=== PATIENT | female | born 1995 | race Caucasian/White ===

== ENCOUNTER 2016-05-04 20:20 | Emergency (ER) ==
[2016-05-04 20:28] VITALS: BP 123/83; TEMP 98.3; BMI 34.2
[2016-05-04 20:46] LABS: URINE PREGNANCY INTERNAL QC INTERNAL QC VALID
[2016-05-04 20:59] LABS: COCAIN SCREEN,URINE NEGATIVE (NEGATIVE)
--- NOTE | 2016-05-04 21:11 | CT ---
EXAM: CT of the head without contrast. HISTORY: Earache. COMPARISON: None available. TECHNIQUE: Noncontrast CT of the head. FINDINGS: No intracranial hemorrhage or mass effect is identified. There is mild prominence of the sulci. The ventricles are normal in size and configuration. No brown white matter differentiation loss is seen to suggest an acute infarct. The calvarium is intact. The visualized paranasal sinuses are unopacified. The bilateral mastoid air cells are well-aerated. No significant middle ear opacification is seen on coronal images. No rey ss external auditory canal wall thickening is seen. IMPRESSION: No evidence of an acute intracranial process. The bilateral mastoid air cells and middle ears appear well-aerated.
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
[2016-05-04] MEDS ORDERED: TYLENOL PO STA (21:18)
--- NOTE | 2016-05-04 21:21 | ED.PDOC ---
General ED Provider: Dr. MELODIE ORLANDO-ER Chief Complaint: Fall Stated Complaint: i slipped at work on a package and hit my head on the floor-- employer requests drug screen Time Seen by Physician: 20:25 Information Source: Patient Exam Limitations: No limitations [facility] Nursing and Triage Documentation Reviewed and Agree: Yes Trauma/Injury Complaint Exam - Head Injury Complaint/Exam Location of Pain: Reports: Scalp Mechanism of Injury: Reports: Trauma Onset/Duration: secs Symptoms Are: Still present Initial Severity: Mild Current Severity: Mild Character: Reports: Dull, Throbbing Aggravating: Reports: None Alleviating: Reports: None Associated Signs and Symptoms: Denies: Confusion, Memory loss, Seizure, Epistaxis, Dental malocclusion, Neck pain, Nausea, Vomiting Loss of Consciousness: Seconds SDH Risk Factors: Present: None Related Surgical History: Reports: None Immobilization Removed Post Exam: No Head Injury Findings: Present: Normal findings Glascow Coma Scale (see protocol): 15 Focal Weakness: Present: None Focal Sensory Loss: Present: None Gait: Normal Gag Reflex Present: Yes Finger to Nose: Normal Rhomberg Test Positive: No Babinski Sign: Negative Right, Negative Left Heel to Toe Normal: Yes Nexus Low Risk Criteria: No post-midline CS tender Differential Diagnoses: Sprain, Strain, Trauma Review of Systems - Review Of Systems Constitutional: Reports: No symptoms Eyes: Reports: No symptoms Ears, Nose, Mouth, Throat: Reports: No symptoms Respiratory: Reports: No symptoms Cardiac: Reports: No symptoms GI: Reports: No symptoms : Reports: No symptoms Musculoskeletal: Reports: No symptoms Skin: Reports: No symptoms Neurological: Reports: Headache Endocrine: Reports: No symptoms Hematologic/Lymphatic: Reports: No symptoms All Other Systems: Reviewed and Negative Past Medical History - Past Medical History Previously Healthy: Yes Endocrine: Reports: None Cardiovascular: Reports: None Respiratory: Reports: None, Other Hematological: Reports: None Gastrointestinal: Reports: None Genitourinary: Reports: None Neuro/Psych: Reports: None Musculoskeletal: Reports: None Cancer: Reports: None Last Menstrual Period: UNSURE Other Pertinent Past Medical History: TORN LIGAMENTS TO RIGHT SHOULDER - Surgical History General Surgical History: Reports: Tonsillectomy - Family History Family History: Reports: Unknown - Social History Smoking Status: Current every day smoker, Light tobacco smoker Hx Substance Use: No Alcohol Screening: Occasionally Lives: With family - Immunizations Tetanus Shot up to Date: Yes Physical Exam - Physical Exam Appearance: Well-appearing Pain Distress: Mild Eyes: JOSE A, EOMI, Conjunctiva clear ENT: Ears normal, Nose normal, Oropharynx normal Neck: Supple Respiratory: Airway patent Cardiovascular: RRR GI/: Soft, Nontender, No masses, Bowel sounds normal, No Organomegaly Musculoskeletal: Normal strength, ROM intact, No edema, No calf tenderness Skin: Warm, Dry, Normal color Neurological: Sensation intact, Motor intact, Reflexes intact, Cranial nerves intact, Alert, Oriented Psychiatric: Affect appropriate, Mood appropriate Interpretation - Radiology Interpretation Radiology Interpretation By: Radiologist Radiology Results: Negative Exam Interpreted: CT Scan Re-Evaluation - Re-Evaluation Time of Re-Evaluation: 21:21 Status: Improved Vital Signs Stable: Yes Pain Level: 1 Appearance: NAD Lungs: Clear Skin: Warm and Dry Neuro: Alert and Oriented X3 CV: RRR Critical Care Note - Critical Care Note Total Time (mins): 0 Course - Course Orders, Labs, Meds: Lab Review 05/04/16 20:36 Urine Test Negative Urine Opiates Screen Negative Ur Oxycodone Screen Negative Urine Methadone Screen Negative Ur Propoxyphene Screen Negative Ur Barbiturates Screen Negative U Tricyclic Antidepress Negative Ur Phencyclidine Scrn Negative Ur Amphetamine Screen Negative U Methamphetamines Scrn Negative U Benzodiazepines Scrn Negative Urine Cocaine Screen Negative U Cannabinoids Screen Negative Orders Category Date Time Status URINE DRUG SCREEN (RAPID FOR ED) [DRUG SCREEN, URINE, LAB 05/04/16 20:36 Completed RAPID] Stat URINE Stat LAB 05/04/16 20:36 Completed Acetaminophen [Tylenol] MEDS 05/04/16 21:18 Stat 650 mg PO ONCE STA CT CERVICAL SPINE W/O CONTRAST Stat RADS 05/04/16 20:[address] HEAD W/O CONTRAST Stat RADS 05/04/16 20:31 Completed Medications Generic Name Dose Route Start Last Admin Trade Name Freq PRN Reason Stop Dose Admin Acetaminophen 650 mg 05/04/16 21:18 Tylenol PO 05/04/16 21:19 ONCE STA Vital Signs: Temp Pulse Resp BP Pulse Ox 05/04/16 20:22 98.3 F 87 16 123/83 98 Departure - Departure Time of Disposition: 21:21 Disposition: HOME SELF-CARE Discharge Problem: Closed head injury Qualifiers: Encounter type: initial encounter Qualifier Code: (S09.90XA) Unspecified injury of head, initial encounter Instructions: Head Injury (ED) Condition: Good Pt referred to PMD for follow-up: Yes Additional Instructions: tylenol or motrin for pain--f/u with pcp Allergies/Adverse Reactions: Allergies latex Adverse Reaction (Verified 05/04/16 20:21) Home Medications: Ambulatory Orders 1 [No Reported Medications] 05/04/16 Disposition Discussed With: Patient
== END 2016-05-04 21:47 | disposition home or self-care (01) ==
LOC: ED 20:20
DX: S09.90XA Unspecified injury of head, initial encounter (principal); R51 Headache; W01.198A Fall on same level from slipping, tripping and stumbling with subsequent striking against other object, initial encounter; Y99.0 Civilian activity done for income or pay; F17.210 Nicotine dependence, cigarettes, uncomplicated
CPT/HCPCS: 80306; 81025; 99283

== ENCOUNTER 2016-05-16 06:36 | Emergency (ER) ==
[2016-05-16 06:51] VITALS: BP 119/85; TEMP 97.6; BMI 33.9
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
--- NOTE | 2016-05-16 07:57 | DI ---
EXAM: RIGHT ANKLE THREE VIEWS HISTORY: Injury, pain . FINDINGS: Bone and joint structures appear normal. No fracture or joint dislocation. There is no joint effusion. Bone density is unremarkable. IMPRESSION: Bone and joint structures are within normal limits.
== END 2016-05-16 08:09 | disposition home or self-care (01) ==
LOC: ED 06:36
DX: S40.011A Contusion of right shoulder, initial encounter (principal); W10.9XXA Fall (on) (from) unspecified stairs and steps, initial encounter; F17.210 Nicotine dependence, cigarettes, uncomplicated
CPT/HCPCS: 99283

== ENCOUNTER 2016-10-07 09:32 | Emergency (ER) ==
[2016-10-07 09:36] VITALS: BP 117/78; TEMP 100.9; BMI 35.2
[2016-10-07] MEDS ORDERED: DECADRON 4 MG/ML SDV IM STA (09:45)
[2016-10-07] MEDS ORDERED: TORADOL IM STA (09:45)
--- NOTE | 2016-10-07 09:47 | ED.PDOC ---
General ED Provider: Dr. REECE LYNN Chief Complaint: Headache Stated Complaint: hurting for 3days, also coughing, congested, sinus drainage Time Seen by Physician: 09:45 Mode of Arrival: Walk-In Information Source: Patient Primary Care Provider: ANNE MARIE PATEL Nursing and Triage Documentation Reviewed and Agree: Yes Neurological Complaint Exam - Headache Complaint/Exam Onset: Gradual Symptoms Are: Still present Timing: Constant Worst Headache Ever: No Initial Severity: Moderate Current Severity: Moderate Location: Right, Left, Frontal Character: Reports: Dull Aggravating: Reports: Bright lights Alleviating: Reports: None Associated Signs and Symptoms: Reports: Nausea, Vomiting. Denies: Dizziness, Seizure, Sinus pressure, Fever, Neck pain, Neck stiffness, Decreased LOC, Visual changes Related History: Reports: Similar episode Related Surgical History: Reports: None SAH Risk Factors: Reports: None Meningitis Risk Factors: Reports: None SDH Risk Factors: Reports: None Temporal Arteritis Risk Factors: Reports: None Normal Head CT Within Last 12 Months: No Sinus Tenderness: Present: Maxillary, Frontal ROM Limited In: No Limitiations Focal Weakness: Present: None Focal Sensory Loss: Present: None Gait: Normal Nystagmus Present: No Gag Reflex Present: Yes [id number]: Normal Findings Differential Diagnoses: Migraine, Other (urti) Review of Systems - Review Of Systems Constitutional: Reports: Malaise Eyes: Reports: No symptoms Ears, Nose, Mouth, Throat: Reports: Nose discharge Respiratory: Reports: Cough Cardiac: Reports: No symptoms GI: Reports: No symptoms : Reports: No symptoms Musculoskeletal: Reports: No symptoms Skin: Reports: No symptoms Neurological: Reports: No symptoms Endocrine: Reports: No symptoms Hematologic/Lymphatic: Reports: No symptoms All Other Systems: Reviewed and Negative Past Medical History - Past Medical History Previously Healthy: Yes Endocrine: Reports: None Cardiovascular: Reports: None Respiratory: Reports: None, Other Hematological: Reports: None Gastrointestinal: Reports: None Genitourinary: Reports: None Neuro/Psych: Reports: Migraine Musculoskeletal: Reports: None, Other (subtle ac separation on joint films) Cancer: Reports: None Last Menstrual Period: 10/05/2016 Other Pertinent Past Medical History: TORN LIGAMENTS TO RIGHT SHOULDER-note chnages on MR without fullthick tear, - Surgical History General Surgical History: Reports: Tonsillectomy - Family History Family History: Reports: Unknown - Social History Smoking Status: Current every day smoker Smoking Cessation Counseling Time: > 3 min - 10 min Hx Substance Use: No Alcohol Screening: Occasionally - Immunizations Tetanus Shot up to Date: Yes Physical Exam - Physical Exam Appearance: Well-appearing, No pain distress, Well-nourished Eyes: JOSE A, EOMI, Conjunctiva clear ENT: Ears normal, Nose normal, Oropharynx normal Respiratory: Airway patent, Breath sounds clear, Breath sounds equal, Respirations nonlabored Cardiovascular: RRR, Pulses normal, No rub, No murmur GI/: Soft, Nontender, No masses, Bowel sounds normal, No Organomegaly Musculoskeletal: Normal strength, ROM intact, No edema, No calf tenderness Skin: Warm, Dry, Normal color Neurological: Sensation intact, Motor intact, Reflexes intact, Cranial nerves intact, Alert, Oriented Psychiatric: Affect appropriate, Mood appropriate Critical Care Note - Critical Care Note Total Time (mins): 0 Course - Course Orders, Labs, Meds: Orders Category Date Time Status Dexamethasone 4 mg/ml Inj [Decadron 4 mg/ml Sdv] MEDS 10/07/16 09:45 Stat 4 mg IM ONCE STA Ketorolac Tromethamine [Toradol] MEDS 10/07/16 09:45 Stat 30 mg IM ONCE STA Vital Signs: Temp Pulse Resp BP Pulse Ox 10/07/16 09:32 100.9 F H 125 H 20 117/78 95 Departure - Departure Time of Disposition: 09:47 Disposition: HOME SELF-CARE Discharge Problem: Acute upper respiratory infection Instructions: Upper Respiratory Infection (ED) Condition: Stable Pt referred to PMD for follow-up: Yes Additional Instructions: Tylenol prn Increase hydration f/u at [facility] Prescriptions: Amoxicillin/Potassium Clav [Augmentin 500-125 mg Tab] 1 tab PO Q12HR #20 tablet Prednisone 10 mg PO BIDWM #14 tablet Allergies/Adverse Reactions: Allergies latex Adverse Reaction (Verified 10/07/16 09:40) says latex nixon skin when she wears them, but does not break out if someone just touches her while wearing latex clothes. Home Medications: Ambulatory Orders Amoxicillin/Potassium Clav [Augmentin 500-125 mg Tab] 1 tab PO Q12HR #20 tablet 10/07/16 Prednisone 10 mg PO BIDWM #14 tablet 10/07/16 Disposition Discussed With: Patient
== END 2016-10-07 10:36 | disposition home or self-care (01) ==
LOC: ED 09:32
DX: J06.9 Acute upper respiratory infection, unspecified (principal); F17.210 Nicotine dependence, cigarettes, uncomplicated
CPT/HCPCS: 96372; 99282

== ENCOUNTER 2017-03-13 13:18 | Outpatient (CLI) ==
[2017-03-13 13:38] LABS: BILIRUBIN,URINE Negative (NEGATIVE); KETONES,URINE Negative (NEGATIVE); LEUKOCYTE ESTERASE ,URINE 1+ (NEGATIVE); NITRITE,URINE Negative (NEGATIVE); PH,URINE 5.5 (5-9); PROTEIN,URINE 1+ (NEGATIVE); URINE, BLOOD 1+ (NEGATIVE)
[2017-03-13 13:59] LABS: ADD URINE MICROSCOPIC YES
[2017-03-13 14:04] LABS: BACTERIA,URINE 2+ (NOT PRESENT)
[2017-03-13 14:24] LABS: ALBUMIN 3.4 g/dL (3.4-5.0); ANION GAP 12.2; BILIRUBIN,TOTAL 0.36 mg/dL (0.00-1.20); BUN/CREATININE RATIO 16.9; CALCIUM 9.4 mg/dL (8.2-10.2); CREATININE 0.71 mg/dL (0.60-1.30); POTASSIUM 4.2 mmol/L (3.5-5.10); TOTAL PROTEIN 6.8 g/dL (6.4-8.2)
[2017-03-14 08:30] LABS: RAPID PLASMA REAGIN Non Reactive (Non Reactive)
== END 2017-03-13 13:19 | disposition home or self-care (01) ==
LOC: LAB 13:18
PROVIDERS: ATTEND Nurse Practitioner Family
DX: Z20.2 Contact with and (suspected) exposure to infections with a predominantly sexual mode of transmission (principal)
CPT/HCPCS: 36415; 80053; 80074; 81001; 86592; 86631; 86695; 86696; 86701; 87086; 87800

== ENCOUNTER 2017-08-17 10:31 | Emergency (ER) | payer MEDICAID, OTHER ==
[2017-08-17 10:38] VITALS: BP 136/88; TEMP 97.9; BMI 41.5
--- NOTE | 2017-08-17 11:12 | ED.PDOC ---
General ED Provider: Dr. MELODIE ALVARENGA Chief Complaint: Nausea/Vomiting Stated Complaint: Was camping at [facility]; consumed sour milk. Feels nauseated and lt lower abdominal pain. 1 episoded loose stools Time Seen by Physician: 10:45 Mode of Arrival: Walk-In Information Source: Patient Exam Limitations: No limitations Primary Care Provider: REECE LINDA Referred to ED by: Other (self-woried she had a GI infection and wanted to get checked ou7) Nursing and Triage Documentation Reviewed and Agree: Yes Reviewed sepsis parameters & appropriate labs ordered?: Yes System Inflammatory Response Syndrome: Not Applicable Sepsis Protocol: For patient's 13 years and over: Temp is 96.8 and below OR 101 and greater Pulse >90 BPM Resp >20/minute Acutely Altered Mental Status Are patient's symptoms suggestive of a new infection, such as: -Pneumonia -Skin, Soft Tissue -Endocarditis -UTI -Bone, Joint Infection -Implantable Device -Acute Abdominal Infection -Wound Infection -Meningitis -Blood Stream Catheter Infection -Unknown System Inflammatory Response Syndrome: Not Applicable GI Complaint Exam - Vomiting/Diarrhea Complaint/Exam Onset/Duration: 1 day Symptoms Are: Still present (iimproved) Initial Severity: Moderate Current Severity: Mild Character of Vomiting: Reports: Bilious Character of Diarrhea: Reports: Watery Aggravating: Reports: Liquids Alleviating: Reports: None Associated Signs and Symptoms: Reports: Cramping. Denies: Dizziness, Light- headedness, Melena, Hematemesis, Fever, Abdominal pain Related History: Denies: Similar episode Non-GI Risk Factors: Reports: None Surgical Obstruction Risk Factors: Reports: None Related Surgical History: Reports: None Abdominal Findings: Present: CVA Tenderness (lt) Kussmaul Respirations Present: No Review of Systems - Review Of Systems Constitutional: Reports: No symptoms Eyes: Reports: No symptoms Ears, Nose, Mouth, Throat: Reports: No symptoms Respiratory: Reports: No symptoms Cardiac: Reports: No symptoms GI: Reports: Nausea, Poor appetite, Vomiting : Reports: No symptoms Musculoskeletal: Reports: No symptoms Skin: Reports: No symptoms Neurological: Reports: No symptoms Endocrine: Reports: No symptoms Hematologic/Lymphatic: Reports: No symptoms All Other Systems: Reviewed and Negative Past Medical History - Past Medical History Previously Healthy: Yes Endocrine: Reports: None Cardiovascular: Reports: None Respiratory: Reports: None, Other Hematological: Reports: None Gastrointestinal: Reports: None Genitourinary: Reports: None Neuro/Psych: Reports: Migraine Musculoskeletal: Reports: None, Other (subtle ac separation on joint films) Cancer: Reports: None Last Menstrual Period: last week Other Pertinent Past Medical History: TORN LIGAMENTS TO RIGHT SHOULDER-note chnages on MR without fullthick tear, - Surgical History General Surgical History: Reports: Tonsillectomy - Family History Family History: Reports: Unknown - Social History Smoking Status: Current every day smoker Hx Substance Use: No Alcohol Screening: Occasionally Physical Exam - Physical Exam Appearance: Well-appearing, No pain distress, Well-nourished Eyes: JOSE A, EOMI, Conjunctiva clear ENT: Ears normal, Nose normal, Oropharynx normal Respiratory: Airway patent, Breath sounds clear, Breath sounds equal, Respirations nonlabored Cardiovascular: RRR, Pulses normal, No rub, No murmur GI/: Soft, No masses, Bowel sounds normal, No Organomegaly, Tender (LUQ-LLQ with mild guarding) Musculoskeletal: Normal strength, ROM intact, No edema, No calf tenderness Skin: Warm, Dry, Normal color Neurological: Sensation intact, Motor intact, Reflexes intact, Cranial nerves intact, Alert, Oriented Psychiatric: Affect appropriate, Mood appropriate Critical Care Note - Critical Care Note Total Time (mins): 30 Course - Course Hematology/Chemistry: 08/17/17 11:43 08/17/17 11:43 Orders, Labs, Meds: Lab Review 08/17/17 08/17/17 08/17/17 11:17 11:43 11:43 WBC 8.90 RBC 4.46 Hgb 13.1 Hct 39.0 MCV 87.4 MCH 29.4 MCHC 33.6 RDW Coeff of Emiliano 13.7 Plt Count 269 Immature Gran % (Auto) 0.7 Neut % (Auto) 60.4 Lymph % (Auto) 29.4 Wagoner % (Auto) 7.6 Eos % (Auto) 1.2 Baso % (Auto) 0.7 Immature Gran # (Auto) 0.1 Neut # (Auto) 5.4 Lymph # (Auto) 2.6 Wagoner # (Auto) 0.7 Eos # (Auto) 0.1 Baso # (Auto) 0.1 Sodium 141 Potassium 4.2 Chloride 107 Carbon Dioxide 26 Anion Gap 12.2 BUN 11 Creatinine 0.73 Estimated GFR (MDRD) 100.00 BUN/Creatinine Ratio 15.06 Glucose 90 Calcium 9.9 Total Bilirubin 0.3 AST 18 ALT 22 Alkaline Phosphatase 50 Total Protein 6.7 Albumin 3.7 Globulin 3.0 Albumin/Globulin Ratio 1.23 Urine Color Yellow Urine Clarity Clear Urine pH 6.5 Ur Specific Bland 1.015 Urine Protein Negative Urine Glucose (UA) Negative Urine Ketones Negative Urine Blood Negative Urine Nitrite Negative Urine Bilirubin Negative Urine Urobilinogen 0.2 Ur Leukocyte Esterase Negative Orders Category Date Time Status CBC W/ AUTO DIFF Stat LAB 08/17/17 11:43 Completed CMP [COMPREHENSIVE METABOLIC PANEL] Stat LAB 08/17/17 11:43 Completed UA [URINALYSIS C & S IF INDICATED] Stat LAB 08/17/17 11:17 Completed Ondansetron [Zofran Odt] MEDS 08/17/17 11:26 Discontinued 4 mg PO ONCE STA Ranitidine HCl [Zantac] MEDS 08/17/17 11:27 Discontinued 150 mg PO ONCE STA CT ABDOMEN/PELVIS WO CONTRAST Stat RADS 08/17/17 11:24 Completed Medications Discontinued Medications Generic Name Dose Route Start Last Admin Trade Name Freq PRN Reason Stop Dose Admin Ondansetron HCl 4 mg 08/17/17 11:26 08/17/17 12:10 Zofran Odt PO 08/17/17 11:27 4 mg ONCE STA Administration Ranitidine HCl 150 mg 08/17/17 11:27 08/17/17 12:10 Zantac PO 08/17/17 11:28 150 mg ONCE STA Administration Vital Signs: Temp Pulse Resp BP Pulse Ox 08/17/17 10:32 97.9 F 79 16 136/88 98 Departure - Departure Time of Disposition: 12:25 Disposition: HOME SELF-CARE Discharge Problem: Gastroenteritis Instructions: Gastroenteritis (ED), Acute Nausea and Vomiting (ED) Condition: Good Pt referred to PMD for follow-up: Yes (1 week) IPMP verified?: Yes Additional Instructions: Take OTC zantac for further stomach upset. avoid aggravating foods or beverages, May return to work Tomorrow or next normal day of working Advance diet as tolerated Allergies/Adverse Reactions: Allergies latex Adverse Reaction (Verified 08/17/17 10:39) says latex nixon skin when she wears them, but does not break out if someone just touches her while wearing latex clothes. Home Medications: Ambulatory Orders Norethindrone-E.estradiol-Iron [Blisovi Fe 1.5-30 Tablet] 1 each PO DAILY Disposition Discussed With: Patient
[2017-08-17] MEDS ORDERED: ZOFRAN ODT PO STA (11:26)
[2017-08-17] MEDS ORDERED: ZANTAC PO STA (11:27)
--- NOTE | 2017-08-17 12:04 | CT ---
EXAM: CT scan of the abdomen and pelvis without contrast HISTORY: Abdominal pain TECHNIQUE: Imaging of the abdomen and pelvis was performed without intravenous contrast. 3 mm thin axial images and coronal and sagittal reconstructions were provided for interpretation. Comparison none. FINDINGS: The liver, spleen, pancreas, adrenal glands and kidneys appear normal. The proximal urete rs are normal size. The small and large bowel loops are normal in caliber. The appendix appears nor mal. No acute abnormalities are seen within the anterior abdominal wall. The helical images obtained through the pelvis demonstrate an appearance of the rectum, urinary bladd er. There is no free fluid seen within the pelvis. No retroperitoneal abnormalities are seen. Lung bases are clear. No lytic or blastic lesions are seen within the osseous structures. IMPRESSION: There is no bowel obstruction or acute inflammatory change seen within the abdomen and p albertina. There is no ureteral obstruction.
== END 2017-08-17 12:57 | disposition home or self-care (01) ==
LOC: ED 10:31
DX: K52.9 Noninfective gastroenteritis and colitis, unspecified (principal); F17.210 Nicotine dependence, cigarettes, uncomplicated
CPT/HCPCS: 36415; 80053; 81001; 85025; 99283

== ENCOUNTER 2018-01-12 08:40 | Emergency (ER) | payer MEDICAID, OTHER ==
[2018-01-12 08:44] VITALS: BP 145/94; TEMP 99.1; BMI 36.5
--- NOTE | 2018-01-12 08:52 | ED.PDOC ---
General ED Provider: Dr. MELODIE ALVARENGA Chief Complaint: Hand Pain/Injury Stated Complaint: Closed Rt Hand-1st metarcarpal-phalyngeal joint in the car door Time Seen by Physician: 08:50 Mode of Arrival: Walk-In Information Source: Patient Exam Limitations: No limitations Primary Care Provider: AXEL MENG Nursing and Triage Documentation Reviewed and Agree: Yes Does patient meet sepsis criteria?: No If yes, has appropriate treatment been initiated?: Yes System Inflammatory Response Syndrome: Not Applicable Sepsis Protocol: For patient's 13 years and over: Temp is 96.8 and below OR 101 and greater Pulse >90 BPM Resp >20/minute Acutely Altered Mental Status Are patient's symptoms suggestive of a new infection, such as: -Pneumonia -Skin, Soft Tissue -Endocarditis -UTI -Bone, Joint Infection -Implantable Device -Acute Abdominal Infection -Wound Infection -Meningitis -Blood Stream Catheter Infection -Unknown Musculoskeletal Complaint Exam - Hand/Wrist Complaint/Exam Location of Pain: Reports: Right, Digit #1 Mechanism of Injury: Reports: Trauma Symptoms Are: Still present Onset of Pain: Reports: Immediate Initial Severity: Moderate Current Severity: Moderate Location: Reports: Discrete Character: Reports: Aching, Throbbing, Stiffness Alleviating: Reports: Rest Aggravating: Reports: None Associated Signs and Symptoms: Reports: Swelling, Weakness. Denies: Redness, Bruising, Fever, Numbness, Tingling Related History: Denies: Similar episode Dominant Hand: Right Hand/Wrist Findings: Present: Swelling Compartment Syndrome Risk Factors: Present: Pain Differential Diagnoses: Contusion, Closed Fracture, Tenosynovitis Review of Systems - Review Of Systems Constitutional: Reports: No symptoms Eyes: Reports: No symptoms Ears, Nose, Mouth, Throat: Reports: No symptoms Respiratory: Reports: No symptoms Cardiac: Reports: No symptoms GI: Reports: No symptoms : Reports: No symptoms Musculoskeletal: Reports: No symptoms, Joint pain Skin: Reports: No symptoms Neurological: Reports: No symptoms Endocrine: Reports: No symptoms Hematologic/Lymphatic: Reports: No symptoms All Other Systems: Reviewed and Negative Past Medical History - Past Medical History Previously Healthy: Yes Endocrine: Reports: None Cardiovascular: Reports: None Respiratory: Reports: None, Other Hematological: Reports: None Gastrointestinal: Reports: None Genitourinary: Reports: None Neuro/Psych: Reports: Migraine Musculoskeletal: Reports: None, Other (subtle ac separation on joint films) Cancer: Reports: None Last Menstrual Period: 3 weeks ago Other Pertinent Past Medical History: TORN LIGAMENTS TO RIGHT SHOULDER-note chnages on MR without fullthick tear, - Surgical History General Surgical History: Reports: Tonsillectomy - Family History Family History: Reports: Unknown - Social History Smoking Status: Former smoker Hx Substance Use: No Alcohol Screening: Occasionally Physical Exam - Physical Exam Appearance: Well-appearing, No pain distress, Well-nourished Ill-appearing: None Pain Distress: None Eyes: JOSE A, EOMI, Conjunctiva clear ENT: Ears normal, Nose normal, Oropharynx normal Neck: Supple Respiratory: Airway patent, Breath sounds clear, Breath sounds equal, Respirations nonlabored Cardiovascular: RRR, Pulses normal, No rub, No murmur GI/: Soft, Nontender, No masses, Bowel sounds normal, No Organomegaly Musculoskeletal: Normal strength (Diminished strength Rt thumb/no discoloration ), ROM intact, No edema, No calf tenderness Skin: Warm, Dry, Normal color Neurological: Sensation intact, Motor intact, Reflexes intact, Cranial nerves intact, Alert, Oriented Psychiatric: Affect appropriate, Mood appropriate Interpretation - Radiology Interpretation Radiology Interpretation By: Radiologist Radiology Results: No acute changes Critical Care Note - Critical Care Note Total Time (mins): 0 Course - Course Orders, Labs, Meds: Orders Category Date Time Status HAND, RIGHT 3 VIEWS Stat RADS 01/12/18 08:52 Completed Vital Signs: Temp Pulse Resp BP Pulse Ox 01/12/18 08:41 99.1 F 89 20 145/94 H 99 Departure - Departure Time of Disposition: 09:30 Disposition: HOME SELF-CARE Discharge Problem: Crushing injury of right thumb, initial encounter, Contusion of thumb, right Instructions: Crush Injury (ED), Hematoma (ED) Condition: Good Pt referred to PMD for follow-up: Yes IPMP verified?: No Additional Instructions: Splint Ice /Elevate Advil or Aleve for pain as needed F/U PCP in next week My work as tolerated Off work today Return to work tomorrow Prescriptions: Ibuprofen 600 mg PO QID PRN #20 tablet PRN Reason: Pain Allergies/Adverse Reactions: Allergies latex Adverse Reaction (Verified 01/12/18 08:44) says latex nixon skin when she wears them, but does not break out if someone just touches her while wearing latex clothes. Home Medications: Ambulatory Orders Hydrocodone/Acetaminophen [Apollo 5-325 Tablet] 1 each PO Q4-6H PRN #10 tablet Ibuprofen 600 mg PO QID PRN #20 tablet 01/12/18 Disposition Discussed With: Patient
--- NOTE | 2018-01-12 09:18 | DI ---
EXAM: Three views of the right hand HISTORY: Pain and swelling COMPARISON: None available FINDINGS: No fracture or dislocation is identified. The joint spaces are maintained. No gross soft tissue abno rmality is evident. IMPRESSION: No acute osseous abnormality.
== END 2018-01-12 09:55 | disposition home or self-care (01) ==
LOC: ED 08:40
DX: S60.011A Contusion of right thumb without damage to nail, initial encounter (principal); W23.0XXA Caught, crushed, jammed, or pinched between moving objects, initial encounter
CPT/HCPCS: 99283

== ENCOUNTER 2018-07-13 14:42 | Emergency (ER) | payer MEDICAID, OTHER ==
[2018-07-13 14:56] VITALS: BP 125/81; TEMP 96.9; BMI 35.9
--- NOTE | 2018-07-13 16:11 | ED.PDOC ---
General ED Provider: Dr. MELODIE ALVARENGA Chief Complaint: Cough Stated Complaint: Sore throat, cough and congestion Time Seen by Physician: 16:10 Mode of Arrival: Walk-In Information Source: Patient, Family Exam Limitations: No limitations Primary Care Provider: AXEL MENG Referred to ED by: PCP Nursing and Triage Documentation Reviewed and Agree: Yes Does patient meet sepsis criteria?: No If yes, has appropriate treatment been initiated?: No System Inflammatory Response Syndrome: Not Applicable Sepsis Protocol: For patient's 13 years and over: Temp is 96.8 and below OR 101 and greater Pulse >90 BPM Resp >20/minute Acutely Altered Mental Status Are patient's symptoms suggestive of a new infection, such as: -Pneumonia -Skin, Soft Tissue -Endocarditis -UTI -Bone, Joint Infection -Implantable Device -Acute Abdominal Infection -Wound Infection -Meningitis -Blood Stream Catheter Infection -Unknown Respiratory Complaint Exam - Respiratory Complaint/Exam Onset/Duration: 1 day Timing: Constant Initial Severity: Moderate Current Severity: Moderate Location: Throat Character: Reports: Non-productive cough Aggravating: Reports: Deep breaths Alleviating: Reports: None Associated Signs and Symptoms: Reports: Hoarseness. Denies: Rapid breathing, Dyspnea, Fever, Chills, Chest pain, Pleuritic chest pain, Wheezing, Hemoptysis, Dizziness, Calf pain, Calf swelling, Edema, URI, Nasal congestion, Sinus discomfort, Vomiting, Sore throat, Weight loss, Decreased oral intake, Increased thirst, Increased appetite, Increased urination History of Healthcare-Acquired Pneumonia: No Related Surgical History: Reports: None Pulmonary Embolism Risk Factors: None Cardiac Risk Factors: Reports: None Pseudomonas Risk Factors: Reports: None Tuberculosis Risk Factors: Reports: None Status Asthmaticus Risk Factors: Reports: None Home Oxygen Use: No Recent Stress Test: No Recent Echo/LV Function: No Current Antibiotic Use: No Current Asthma Medication Use: No Respiratory Distress: None Inadequate Respiratory Effort: No Dysphagia Present: Yes Stridor Present: No JVD Present: No Retractions: Not Present Diminished Breath Sounds: No Sinus Tenderness: None Grunting Respirations: No Kussmaul Respirations: No Differential Diagnoses: URI, Other (tonsillitis) Review of Systems - Review Of Systems Constitutional: Reports: No symptoms Eyes: Reports: No symptoms Ears, Nose, Mouth, Throat: Reports: No symptoms, Throat pain Respiratory: Reports: No symptoms Cardiac: Reports: No symptoms GI: Reports: No symptoms : Reports: No symptoms Musculoskeletal: Reports: No symptoms Skin: Reports: No symptoms Neurological: Reports: No symptoms Endocrine: Reports: No symptoms Hematologic/Lymphatic: Reports: No symptoms All Other Systems: Reviewed and Negative Past Medical History - Past Medical History Previously Healthy: Yes Endocrine: Reports: None Cardiovascular: Reports: None Respiratory: Reports: None, Other Hematological: Reports: None Gastrointestinal: Reports: None Genitourinary: Reports: None Neuro/Psych: Reports: Migraine Musculoskeletal: Reports: None, Other (subtle ac separation on joint films) Cancer: Reports: None Last Menstrual Period: irregular Other Pertinent Past Medical History: TORN LIGAMENTS TO RIGHT SHOULDER-note chnages on MR without fullthick tear, - Surgical History General Surgical History: Reports: Tonsillectomy - Family History Family History: Reports: Unknown - Social History Smoking Status: Former smoker Hx Substance Use: No Alcohol Screening: Occasionally Physical Exam - Physical Exam Appearance: Well-appearing, No pain distress, Well-nourished, Obese Ill-appearing: Mild Pain Distress: None Eyes: JOSE A, EOMI, Conjunctiva clear ENT: Ears normal, Nose normal, Erythema (oral pharyngitis and tonsils) Respiratory: Airway patent, Breath sounds clear, Breath sounds equal, Respirations nonlabored Cardiovascular: RRR, Pulses normal, No rub, No murmur GI/: Soft, Nontender, No masses, Bowel sounds normal, No Organomegaly Musculoskeletal: Normal strength, ROM intact, No edema, No calf tenderness Skin: Warm, Dry, Normal color Neurological: Sensation intact, Motor intact, Reflexes intact, Cranial nerves intact, Alert, Oriented Psychiatric: Affect appropriate, Mood appropriate Critical Care Note - Critical Care Note Total Time (mins): 0 Course - Course Orders, Labs, Meds: Lab Review 07/13/18 16:13 Influ A Molecular Assay Negative by naat Influ B Molecular Assay Negative by naat Orders Category Date Time Status FLU A & B MOLECULAR [FLU A/B MOLECULAR] Stat LAB 07/13/18 16:13 Completed RAPID STREP SCREEN [MOLECULAR GROUP A STREP] Stat LAB 07/13/18 16:13 Completed Vital Signs: Temp Pulse Resp BP Pulse Ox 07/13/18 14:43 96.9 F L 85 18 125/81 98 Departure - Departure Time of Disposition: 17:25 Disposition: HOME SELF-CARE Discharge Problem: Streptococcal tonsillitis Instructions: Tonsillitis (ED) Condition: Good Pt referred to PMD for follow-up: Yes (1 wk) IPMP verified?: No Additional Instructions: Rinse mouth out with warm salt water or antiseptic solution Take tylenol or ibuprofen for pain See pcp in 7-19 days Prescriptions: Amoxicillin 875 mg PO BID #20 tablet Allergies/Adverse Reactions: Allergies latex Adverse Reaction (Verified 07/13/18 14:49) says latex nixon skin when she wears them, but does not break out if someone just touches her while wearing latex clothes. Home Medications: Ambulatory Orders Amoxicillin 875 mg PO BID #20 tablet 07/13/18 Disposition Discussed With: Patient
== END 2018-07-13 17:43 | disposition home or self-care (01) ==
LOC: ED 14:42
DX: R05 Cough (principal); R49.0 Dysphonia; J02.9 Acute pharyngitis, unspecified; J03.00 Acute streptococcal tonsillitis, unspecified
CPT/HCPCS: 87502; 87651; 99283